=== PATIENT | female | born 1985 | race Caucasian/White ===

== ENCOUNTER 2016-05-27 20:57 | Emergency (ER) | payer SELFPAY ==
--- NOTE | 2016-06-07 07:17 | ER ---
ADMIT: 05/27/2016 RM/LOC: ER [facility] MR#: [id number] [address] [facility] [address] [place] [id number] ANA LAURA CHAVEZ [address] [place] [address] Emergency Room Report SEX: F AGE: 30 : 1985 DATE: 05/27/2016 HISTORY OF PRESENT ILLNESS: The patient is a 30-year-old female, presents to the emergency room with abdominal pain for about 2 days. She said it hurts in the right lower quadrant. She says she had, had fever and chills and nausea, but no diarrhea. At this point, she is afebrile. She has a past history of ovarian cyst. She says the pain is dull, but is concerning for any pathology. PHYSICAL EXAMINATION: VITAL SIGNS: Blood pressure 113/70, heart rate 77, respirations 18, temp is 98.9, O2 saturations 98% on room air. GENERAL: Mildly anxious. NECK: Supple. RESPIRATORY: Distress. CVS: Regular in rate and rhythm. ABDOMEN: No tenderness. No guarding. No rebound. SKIN: Good color and turgor. EXTREMITIES: Nontender. NEURO: Oriented x4. LABORATORY DATA AND IMAGING: White count within normal limits. She was not in distress, afebrile. WBCs 8.6, hemoglobin 12. Urine test, negative. Specific gravity 1.001, with negative UA. Ultrasound did show a right ovarian cyst with some fluid in the cul-de-sac. No indication at all of an appendix visualization. The patient was advised to return if symptoms worsen. Given Toradol in the ER as well as some [place] for home use and encouraged to follow up with her primary provider. Pain under control with the medication given in the ER. CLINICAL IMPRESSION: 1. Right lower quadrant abdominal pain. 2. Ovarian cyst. JUSTICE Cardenas / Clayton Ayala MD / modl JOB #: [id number] CC: Clayton Ayala MD, Attending Physician Chantelle Payton MD, Family Physician
== END 2016-05-28 00:55 | disposition home or self-care (01) ==
LOC: ER 20:57
DX: N83.201 Unspecified ovarian cyst, right side (principal); R10.31 Right lower quadrant pain